=== PATIENT | female | born 1955 | race Hispanic/Latino ===

== ENCOUNTER 2018-08-20 03:53 | Emergency (ER) | payer OTHER ==
[2018-08-20] MEDS ORDERED: ACETAMINOPHEN 325 MG TAB ONE (05:33)
== END 2018-08-20 05:41 | disposition home or self-care (01) ==
LOC: EDH 03:53
DX: B34.9 Viral infection, unspecified (principal); J11.1 Influenza due to unidentified influenza virus with other respiratory manifestations; Z98.51 Tubal ligation status
CPT/HCPCS: 87804

== ENCOUNTER → 2021-08-06 | Outpatient (CLI) | payer OTHER | END | disposition home or self-care (01) | LOC: RAH 09:47 | PROVIDERS: ATTEND Family Medicine | DX: Z12.31 Encounter for screening mammogram for malignant neoplasm of breast (principal) | CPT/HCPCS: 77067 ==